=== PATIENT | female | born 1950 | race Caucasian/White ===

== ENCOUNTER 2019-01-14 10:40 | Emergency (ER) | payer OTHER ==
[2019-01-14] MEDS ORDERED: ASPIRIN 81 MG CHEWABLE TABLET ONE (12:55)
--- NOTE | 2019-01-14 13:30 | RAD REPORT ---
EXAM DESCRIPTION: RAD - Chest Single View - 01/14/2019 1:19 pm CLINICAL HISTORY: left side chest pain Chest pain. COMPARISON: Chest Single View dated 12/23/2016; Chest Single View dated 12/10/2016; Chest Single View dated 07/05/2016; CHEST SINGLE VIEW dated 05/02/2009 FINDINGS: Portable technique limits examination quality. The lungs are grossly clear. The heart is normal in size. No displaced fractures. IMPRESSION: No acute intrathoracic process suspected.
[2019-01-14 14:01] LABS: Absolute Lymphocytes (CBC) 2.3 K/uL (0.7-4.9); Basophils % 1.3 % (0-1.3); Hematocrit 38.4 % (36.0-45.0); Lymphocytes % 38.2 % (15.3-44.8); MPV 7.5 fL (7.6-11.3)
[2019-01-14 14:02] LABS: Protime INR 0.96
[2019-01-14 14:26] LABS: ALT/SGPT 28 U/L (12-78); AST/SGOT 34 U/L (15-37); Albumin 4.1 g/dL (3.4-5.0); Alkaline Phosphatase 73 U/L (45-117); BUN Blood Urea Nitrogen 7 mg/dL (7-18); Bicarbonate 32 mmol/L (21-32); Bilirubin Direct 0.2 mg/dL (0-0.2); Bilirubin Total 0.6 mg/dL (0.2-1.0); Glucose Level 92 mg/dL (74-106); Magnesium 2.2 mg/dL (1.8-2.4); NT PRO-BNP 28 pg/mL (<125); Potassium 3.3 mmol/L (3.5-5.1); Protein, Total 7.9 g/dL (6.4-8.2); Sodium Level 133 mmol/L (136-145); Troponin (Emerg Dept Use Only) < 0.02 ng/mL (0.0-0.045)
--- NOTE | 2019-01-14 14:31 | EKG ---
Test Date: 2019-01-14 Test Time: 13:00:32 Featherer: MONICA MEASUREMENT RESULTS: Intervals: Rate: 64 NE: 170 QRSD: 90 QT: 412 QTc: 425 [place]: P: 69 NE: 170 QRS: 30 T: 72 INTERPRETIVE STATEMENTS: Normal sinus rhythm Normal ECG Compared to ECG 12/23/2016 18:39:23 No significant changes Electronically Signed On 01-14-19 14:30:36 ACCOUNTS PAYABLE ASSOCIATE by Austin Denise
--- NOTE | 2019-01-14 14:56 | ER ---
Nurse's Notes [facility] Name: Marcy Reyez Age: 68 yrs Sex: Female : 1950 Arrival Date: 01/14/2019 Time: 10:43 Bed 14 Private MD: Diagnosis: Elevated Blood Pressure;Chest pain;hypokalemia;Right eye subconjunctival hemorrhage Presentation: 01/14 10:55 Presenting complaint: Patient states: checked BP this AM which was 187/88. Patient ss called her PCP to see if she should double up on her medications, which they told her no and to come to ER immediately because it was too high. Transition of care: patient was not received from another setting of care. Onset of symptoms was January 14, 2019. Risk Assessment: Do you want to hurt yourself or someone else? Patient reports no desire to harm self or others. Initial Sepsis Screen: Does the patient meet any 2 criteria? No. Patient's initial sepsis screen is negative. Does the patient have a suspected source of infection? No. Patient's initial sepsis screen is negative. Care prior to arrival: None. 10:55 Method Of Arrival: Ambulatory ss 10:55 Acuity: FRANCISCO JAVIER 4 ss Historical: - Allergies: 10:58 Morphine; ss - Home Meds: 10:58 HCTZ 25 mg half tab in AM and half tab in PM [Active]; ss - PMHx: 10:58 Anxiety; Arthritis; Hypertension; ss - Immunization history:: Adult Immunizations up to date. - Social history:: Smoking status: Patient/guardian denies using tobacco. - Ebola Screening: : Patient denies exposure to infectious person Patient denies travel to an Ebola-affected area in the 21 days before illness onset. - Family history:: not pertinent. - Hospitalizations: : No recent hospitalization is reported. Screenin:42 Abuse screen: Denies threats or abuse. Denies injuries from another. Nutritional ph screening: No deficits noted. Tuberculosis screening: No symptoms or risk factors identified. Fall Risk None identified. Assessment: 11:00 Reassessment: Patient reports that she has been having a bad year with multiple deaths ss in her family, but is seeing a counselor to help cope. 12:35 General: Appears in no apparent distress. comfortable, slender, well groomed, Behavior ph is calm, cooperative, appropriate for age. Pain: Complains of pain in left breast Pain does not radiate. Quality of pain is described as sharp, Is intermittent. Cardiovascular: Reports chest pain, Denies lightheadedness, nausea, shortness of breath, Capillary refill < 3 seconds in bilateral fingers Patient's skin is warm and dry. Rhythm is sinus rhythm. Respiratory: Airway is patent Respiratory effort is even, unlabored, Respiratory pattern is regular, symmetrical. Derm: Skin is intact, is healthy with good turgor, Skin is pink, warm \T\ dry. Musculoskeletal: Circulation, motion, and sensation intact. Range of motion: intact in all extremities. 13:30 Reassessment: Patient appears in no apparent distress at this time. Patient and/or ph family updated on plan of care and expected duration. Pain level reassessed. Patient is alert, oriented x 3, equal unlabored respirations, skin warm/dry/pink. 14:30 Reassessment: Patient appears in no apparent distress at this time. Patient and/or ph family updated on plan of care and expected duration. Pain level reassessed. Patient is alert, oriented x 3, equal unlabored respirations, skin warm/dry/pink. Vital Signs: 10:54 BP 154 / 74; Pulse 70; Resp 16; Temp 97.5(O); Pulse Ox 99% on R/A; Weight 66.68 kg; ss Height 5 ft. 4 in. (162.56 cm); Pain 0/10; 12:52 BP 161 / 67; Pulse 67; Resp 18; Pulse Ox 99% on R/A; ph 14:15 BP 133 / 82; Pulse 68; Resp 16; Pulse Ox 99% on R/A; ph 15:30 BP 147 / 76; Pulse 68; Resp 18; Temp 97.4; Pulse Ox 100% on R/A; ph 10:54 Body Mass Index 25.23 (66.68 kg, 162.56 cm) ED Course: 10:43 Patient arrived in ED. am2 10:54 Arm band placed on right wrist. ss 10:56 Triage completed. ss 12:15 Emre Hampton MD is Attending Physician. wa 12:41 Anita Person RN is Primary Nurse. ph 12:46 Patient has correct armband on for positive identification. Placed in gown. Bed in low ph position. Call light in reach. Side rails up X 1. library monitor on. Pulse ox on. NIBP on. Door closed. Noise minimized. Warm blanket given. Head of bed elevated. 13:06 EKG done, by manager technical support. reviewed by Emre Hampton MD. at1 13:26 XRAY Chest (1 view) In Process Unspecified. EDMS 14:00 Missed attempt(s): 22 gauge in right antecubital area. Bleeding controlled, band aid ph applied, catheter tip intact. 14:53 Khoa Villeda MD is Referral Physician. wa 15:43 No provider procedures requiring assistance completed. Patient did not have IV access ph during this emergency room visit. Administered Medications: 12:59 Drug: Aspirin Chewable Tablet 324 mg Route: PO; ph 15:40 Follow up: Response: No adverse reaction ph 15:39 Drug: Potassium Effervescent Tablet 50 mEq Route: PO; ph 15:40 Follow up: Response: No adverse reaction ph Outcome: 14:54 Discharge ordered by . wa 15:45 Discharged to home ambulatory. ph 15:45 Condition: good 15:45 Discharge instructions given to patient, Instructed on discharge instructions, follow up and referral plans. medication usage, Demonstrated understanding of instructions, follow-up care, medications, Prescriptions given X 3. 15:46 Patient left the ED. ph Signatures: Dispatcher [employer] EDME Nargis Corado RN RN ss Gonzales, Amanda, client architect EKG Tat1 Anita Person RN RN ph Moreno, Amanda am2 Emre Hampton MD MD wa
--- NOTE | 2019-01-14 14:57 | EDPHYS ---
Physician Documentation [facility] Name: Marcy Reyez Age: 68 yrs Sex: Female : 1950 Arrival Date: 01/14/2019 Time: 10:43 Bed 14 Private MD: ED Physician Emre Hampton HPI: 01/14 14:31 This 68 yrs old Female presents to ER via Ambulatory with complaints of High wa Blood Pressure. 14:31 The patient has elevated blood pressure and discovered this at home, with a home wa device. Onset: The symptoms/episode began/occurred this morning. Modifying factors: The symptoms are aggravated by nothing, The symptoms are alleviated by nothing. Associated signs and symptoms: The patient has no apparent associated signs or symptoms. Severity of symptoms: At its worst the blood pressure was 187 mm Hg, in the emergency department the blood pressure is 154/74. The patient has not experienced similar symptoms in the past. The patient has not recently seen a physician. states has h/o HTN. takes Lisonopril-HCTZ 20-12.5. lately cuts it into 2 as taking a full dose used to make her dizzy. noted redness in the R eye 2 days ago. her sister who is nurse asked her to check her BP. noted high today so called her doctor's office. instructed to come to ER as BP too high. denies CABA, dizziness, CP, SOB, swelling or any other concerns. Historical: - Allergies: 10:58 Morphine; ss - Home Meds: 10:58 HCTZ 25 mg half tab in AM and half tab in PM [Active]; ss - PMHx: 10:58 Anxiety; Arthritis; Hypertension; ss - Immunization history:: Adult Immunizations up to date. - Social history:: Smoking status: Patient/guardian denies using tobacco. - Ebola Screening: : Patient denies exposure to infectious person Patient denies travel to an Ebola-affected area in the 21 days before illness onset. - Family history:: not pertinent. - Hospitalizations: : No recent hospitalization is reported. ROS: 14:35 Constitutional: Negative for fever, chills, and weight loss, Eyes: Negative for injury, wa pain, redness, and discharge, ENT: Negative for injury, pain, and discharge, Neck: Negative for injury, pain, and swelling, Cardiovascular: Negative for chest pain, palpitations, and edema, Respiratory: Negative for shortness of breath, cough, wheezing, and pleuritic chest pain, Abdomen/GI: Negative for abdominal pain, nausea, vomiting, diarrhea, and constipation, Back: Negative for injury and pain, MS/Extremity: Negative for injury and deformity, Skin: Negative for injury, rash, and discoloration, Neuro: Negative for headache, weakness, numbness, tingling, and seizure, Psych: Negative for depression, anxiety, suicide ideation, homicidal ideation, and hallucinations. 14:35 All other systems are negative. Exam: 14:35 Constitutional: This is a well developed, well nourished patient who is awake, alert, wa and in no acute distress. Head/Face: Normocephalic, atraumatic. Eyes: Pupils equal round and reactive to light, extra-ocular motions intact. Lids and lashes normal. Conjunctiva and sclera are non-icteric and not injected. Cornea within normal limits. Periorbital areas with no swelling, redness, or edema. ENT: Nares patent. No nasal discharge, no septal abnormalities noted. Tympanic membranes are normal and external auditory canals are clear. Oropharynx with no redness, swelling, or masses, exudates, or evidence of obstruction, uvula midline. Mucous membranes moist. Neck: Trachea midline, no thyromegaly or masses palpated, and no cervical lymphadenopathy. Supple, full range of motion without nuchal rigidity, or vertebral point tenderness. No Meningismus. Chest/axilla: Normal chest wall appearance and motion. Nontender with no deformity. No lesions are appreciated. Cardiovascular: Regular rate and rhythm with a normal S1 and S2. No gallops, murmurs, or rubs. Normal PMI, no JVD. No pulse deficits. Respiratory: Lungs have equal breath sounds bilaterally, clear to auscultation and percussion. No rales, rhonchi or wheezes noted. No increased work of breathing, no retractions or nasal flaring. Abdomen/GI: Soft, non-tender, with normal bowel sounds. No distension or tympany. No guarding or rebound. No evidence of tenderness throughout. Back: No spinal tenderness. No costovertebral tenderness. Full range of motion. Skin: Warm, dry with normal turgor. Normal color with no rashes, no lesions, and no evidence of cellulitis. MS/ Extremity: Pulses equal, no cyanosis. Neurovascular intact. Full, normal range of motion. Neuro: Awake and alert, GCS 15, oriented to person, place, time, and situation. Cranial nerves II-XII grossly intact. Motor strength 5/5 in all extremities. Sensory grossly intact. Cerebellar exam normal. Normal gait. Psych: Awake, alert, with orientation to person, place and time. Behavior, mood, and affect are within normal limits. Vital Signs: 10:54 BP 154 / 74; Pulse 70; Resp 16; Temp 97.5(O); Pulse Ox 99% on R/A; Weight 66.68 kg; ss Height 5 ft. 4 in. (162.56 cm); Pain 0/10; 12:52 BP 161 / 67; Pulse 67; Resp 18; Pulse Ox 99% on R/A; ph 14:15 BP 133 / 82; Pulse 68; Resp 16; Pulse Ox 99% on R/A; ph 15:30 BP 147 / 76; Pulse 68; Resp 18; Temp 97.4; Pulse Ox 100% on R/A; ph 10:54 Body Mass Index 25.23 (66.68 kg, 162.56 cm) ss MDM: 12:15 Patient medically screened. wa 14:36 Differential diagnosis: HTN. pt should not be cutting her pill in half as pill not wa scored. otherwise asymptomatic however at end of MD encounter, pt clutched the bottom of L breast with her left had stating she "caught a charley horse" in that area. advised happens when she gets excited. no assoc SOB, dizziness or diaphoresis. states happened also at [employer] yesterday when she began laughing. will cardiac work up as this is intermittent chest pain until proven otherwise. Data reviewed: vital signs. 14:40 Test interpretation: by ED physician or midlevel provider: ECG, plain radiologic wa studies, EKG: interp by me. HR 64. sinus. nml axis. slight non-specific interventricular delay. no segmental ischemia noted. labs noted for a K of 3.3, otherwise wnl. nml CXR. . ED course: Aspirin given. will discuss dispo. 14:50 Response to treatment: the patient's symptoms have markedly improved after treatment. wa ED course: symptoms was clinically less likely for ACS. work up negative. states recently passed a stress test. will d/c with cardiology f/u. will script for potassium. advise immediately return for chest pain and or other worrisome concerns including chest pain, SOB with exertion, dizziness. 01/14 12:41 Order name: Basic Metabolic Panel; Complete Time: 14:29 nm 01/14 12:41 Order name: CBC with Diff; Complete Time: 14:29 01/14 12:41 Order name: LFT's; Complete Time: 14:29 01/14 12:41 Order name: Magnesium; Complete Time: 14:29 nm 01/14 12:41 Order name: NT PRO-BNP; Complete Time: 14:29 01/14 12:41 Order name: PT-INR; Complete Time: 14:29 nm 01/14 12:41 Order name: Troponin (emerg Dept Use Only); Complete Time: 14:30 nm 01/14 12:41 Order name: XRAY Chest (1 view); Complete Time: 14:30 nm 01/14 12:41 Order name: EKG; Complete Time: 12:42 nm 01/14 12:41 Order name: Cardiac monitoring; Complete Time: 12:48 nm 01/14 12:41 Order name: EKG - Nurse/Tech; Complete Time: 13:03 nm 01/14 12:41 Order name: Labs collected and sent; Complete Time: 14:48 nm 01/14 12:41 Order name: O2 Sat Monitoring; Complete Time: 12:48 nm Administered Medications: 12:59 Drug: Aspirin Chewable Tablet 324 mg Route: PO; ph 15:40 Follow up: Response: No adverse reaction ph 15:39 Drug: Potassium Effervescent Tablet 50 mEq Route: PO; ph 15:40 Follow up: Response: No adverse reaction ph Disposition: 01/14/19 14:54 Discharged to Home. Impression: Elevated Blood Pressure, Chest pain, hypokalemia, Right eye subconjunctival hemorrhage. - Condition is Stable. - Discharge Instructions: Nonspecific Chest Pain, Hypertension, Subconjunctival Hemorrhage, Hypokalemia. - Prescriptions for Potassium Chloride 20 meq Oral Packet - take 1 packet by ORAL route once daily 1 packet in 6 (six) ounces of water or juice; Take after meal; 30 packet. Lisinopril 10 mg Oral Tablet - take 1 tablet by ORAL route once daily; 30 tablet. Hydrochlorothiazide 12.5 mg Oral Tablet - take 1 tablet by ORAL route once daily; 30 tablet. - Medication Reconciliation Form, Thank You Letter, Antibiotic Education, Prescription Opioid Use form. - Follow up: Private Physician; When: 1 - 2 days. Follow up: Khoa Villeda MD; When: 2 - 3 days; Reason: Recheck today's complaints. - Problem is new. - Symptoms have improved. - Notes: follow up with your doctor and the heart doctor for further evaluation. return to ER if you develop chest pain. take medication as prescribed. hols aspirin for 2-3 days to help the bleeding in the eye improve Signatures: Dispatcher [employer] EDMS Nargis Corado RN RN Anita Person RN RN [facility] Hospital[facility] MD MD wa Corrections: (The following items were deleted from the chart) 14:59 14:54 01/14/2019 14:54 Discharged to Home. Impression: Elevated Blood Pressure; Chest wa pain; hypokalemia. Condition is Stable. Forms are Medication Reconciliation Form, Thank You Letter, Antibiotic Education, Prescription Opioid Use. Follow up: Private Physician; When: 1 - 2 days. Follow up: Khoa Villeda; When: 2 - 3 days; Reason: Recheck today's complaints. Problem is new. Symptoms have improved. wa 15:46 14:59 01/14/2019 14:54 Discharged to Home. Impression: Elevated Blood Pressure; Chest ph pain; hypokalemia; Right eye subconjunctival hemorrhage. Condition is Stable. Discharge Instructions: Nonspecific Chest Pain, Hypertension, Hypokalemia. Prescriptions for Potassium Chloride 20 meq Oral Packet - take 1 packet by ORAL route once daily 1 packet in 6 (six) ounces of water or juice; Take after meal; 30 packet, Hydrochlorothiazide 12.5 mg Oral Tablet - take 1 tablet by ORAL route once daily; 30 tablet, Lisinopril 10 mg Oral Tablet - take 1 tablet by ORAL route once daily; 30 tablet. and Forms are Medication Reconciliation Form, Thank You Letter, Antibiotic Education, Prescription Opioid Use. Follow up: Private Physician; When: 1 - 2 days. Follow up: Khoa Villeda; When: 2 - 3 days; Reason: Recheck today's complaints. Problem is new. Symptoms have improved. wa
[2019-01-14] MEDS ORDERED: POTASSIUM 25 MEQ EFFERV TAB ONE (15:26)
[2019-01-14] MEDS ORDERED: POTASSIUM CL SA 10 MEQ TAB PO ONE (15:26)
[2019-01-14 16:14] VITALS: BP 147/76; TEMP 97.4; O2SAT 100
== END 2019-01-14 15:46 | disposition home or self-care (01) ==
LOC: ER 10:40
DX: I10 Essential (primary) hypertension (principal); H11.31 Conjunctival hemorrhage, right eye; E87.6 Hypokalemia; F41.9 Anxiety disorder, unspecified; Z88.5 Allergy status to narcotic agent
CPT/HCPCS: 36415; 71045; 80048; 80076; 83735; 83880; 84484; 85025; 85610; 93005; 99284

== ENCOUNTER 2020-07-28 10:35 | Emergency (ER) | payer OTHER ==
--- NOTE | 2020-07-28 12:41 | EDPHYS ---
Physician Documentation [facility] Name: Marcy Reyez Age: 70 yrs Sex: Female : 1950 Arrival Date: 07/28/2020 Time: 10:38 Bed Treatment Private MD: ED Physician Jp Zarco HPI: 07/28 12:35 This 70 yrs old Female presents to ER via Ambulatory with complaints of Blood cp Pressure Problem. 12:35 The patient has elevated blood pressure and discovered this at home, with a home device.cp 12:35 Onset: The symptoms/episode began/occurred 2 day(s) ago. Severity of symptoms: At its cp worst the blood pressure was 200 mm Hg, in the emergency department the blood pressure is improved, 137 mm Hg. Patient reports she was told in the past she needed a new blood pressure cuff. Denies headache, chest pain and reports taking blood pressure medications as prescribed. Historical: - Allergies: 10:59 Morphine; jl7 - Home Meds: 10:59 olmesartan oral oral [Active]; rosuvastatin 10 mg oral tab 1 tab once daily [Active]; jl7 - PMHx: 10:59 Anxiety; Arthritis; Hypertension; jl7 - PSHx: 10:59 Appendectomy; Hysterectomy; Tubal ligation; jl7 - Immunization history:: Adult Immunizations up to date. - Social history:: Smoking status: Patient denies any tobacco usage or history of. ROS: 12:36 Eyes: Negative for injury, pain, redness, and discharge. cp 12:36 Constitutional: Negative for body aches, chills, fever, poor PO intake. 12:36 ENT: Negative for ear pain, sore throat, difficulty swallowing, difficulty handling secretions. 12:36 Cardiovascular: Negative for chest pain, edema, palpitations. 12:36 Respiratory: Negative for cough, shortness of breath, wheezing. 12:36 Abdomen/GI: Negative for abdominal pain, nausea, vomiting, and diarrhea. 12:36 Neuro: Negative for altered mental status, headache, syncope, weakness. 12:36 All other systems are negative. Exam: 12:37 Head/Face: Normocephalic, atraumatic. cp 12:37 Constitutional: The patient appears in no acute distress, alert, awake, comfortable, non-diaphoretic, non-toxic, well developed, well nourished. 12:37 Eyes: Periorbital structures: appear normal, Conjunctiva: normal, no exudate, no injection, Lids and lashes: appear normal, bilaterally. 12:37 ENT: External ear(s): are unremarkable, Nose: is normal, Mouth: is normal, Posterior pharynx: Airway: no evidence of obstruction, patent. 12:37 Chest/axilla: Inspection: normal. 12:37 Cardiovascular: Rate: normal, Rhythm: regular, Edema: is not appreciated, JVD: is not appreciated. 12:37 Respiratory: the patient does not display signs of respiratory distress, Respirations: normal, no use of accessory muscles, no retractions, labored breathing, is not present, Breath sounds: are clear throughout, no decreased breath sounds. 12:37 Abdomen/GI: Exam negative for discomfort, distension, guarding. 12:37 Neuro: Orientation: to person, place \T\ time. Mentation: is normal, Cerebellar function: is grossly normal, Motor: moves all fours, strength is normal, Sensation: is normal, Gait: is steady. Vital Signs: 10:54 BP 137 / 74; Pulse 77; Resp 17 S; Temp 98.4(O); Pulse Ox 100% on R/A; Weight 70.31 kg jl7 (R); Pain 0/10; 12:20 BP 133 / 63; Pulse 75; Resp 15; Pulse Ox 100% ; Pain 0/10; jl7 MDM: 12:33 Patient medically screened. cp 12:40 Differential diagnosis: hypertensive crisis, Malignant HTN, CVA, intracerebral cp hemorrhage. 12:40 Data reviewed: vital signs, nurses notes. cp Administered Medications: No medications were administered Disposition: 14:23 Co-signature as Attending Physician, Jp Zarco MD. rn Disposition: 07/28/20 12:41 Discharged to Home as Medical Screen. Impression: Encounter for examination of blood pressure. - Condition is Stable. - Discharge Instructions: How to Take Your Blood Pressure, [id number], Form - Blood Pressure Record Sheet. - Medication Reconciliation Form, Thank You Letter, Antibiotic Education, Prescription Opioid Use form. - Follow up: Private Physician; When: 2 - 3 days; Reason: Recheck today's complaints. - Problem is chronic. - Symptoms have improved. Signatures: Zarco, Jp, MD Donovan Christiansen rn, PA PA cp Leal, Jahala RN RN jl7 Corrections: (The following items were deleted from the chart) 12:47 12:41 07/28/2020 12:41 Discharged to Home as Medical Screen. Impression: Encounter for jl7 examination of blood pressure. Condition is Stable. Forms are Medication Reconciliation Form, Thank You Letter, Antibiotic Education, Prescription Opioid Use. Follow up: Private Physician; When: 2 - 3 days; Reason: Recheck today's complaints. Problem is chronic. Symptoms have improved. cp
--- NOTE | 2020-07-28 12:41 | ER ---
Nurse's Notes [facility] Name: Marcy Reyez Age: 70 yrs Sex: Female : 1950 Arrival Date: 07/28/2020 Time: 10:38 Bed Treatment Private MD: Diagnosis: Encounter for examination of blood pressure Presentation: 07/28 10:54 Chief complaint: Patient states: Took BP Monday and it read 200/80, this morning jl7 190/80, reports intermittent lightheaded after seeing the numbers, was told by PCP to get a new cuff a while ago but hasn't yet, denies CABA, denies blurred vision, denies weakness. Coronavirus screen: Client denies travel out of the [place] in the last 14 days. At this time, the client does not indicate any symptoms associated with coronavirus-19. Ebola Screen: No symptoms or risks identified at this time. Initial Sepsis Screen: Does the patient meet any 2 criteria? No. Patient's initial sepsis screen is negative. Does the patient have a suspected source of infection? No. Patient's initial sepsis screen is negative. Risk Assessment: Do you want to hurt yourself or someone else? Patient reports no desire to harm self or others. Onset of symptoms was July 26, 2020. Care prior to arrival: None. 10:54 Method Of Arrival: Ambulatory [facility] 10:54 Acuity: FRANCISCO JAVIER 3 jl7 Triage Assessment: 10:59 General: Appears in no apparent distress. uncomfortable, Behavior is calm, cooperative, jl7 appropriate for age. Pain: Denies pain. Neuro: Level of Consciousness is awake, alert, obeys commands, Oriented to person, place, time, situation, Moves all extremities. Gait is steady, Speech is normal. Cardiovascular: Patient's skin is warm and dry. Respiratory: Airway is patent Respiratory effort is even, unlabored, Respiratory pattern is regular, symmetrical. Derm: Skin is pink, warm \T\ dry. Historical: - Allergies: 10:59 Morphine; jl7 - Home Meds: 10:59 olmesartan oral oral [Active]; rosuvastatin 10 mg oral tab 1 tab once daily [Active]; jl7 - PMHx: 10:59 Anxiety; Arthritis; Hypertension; jl7 - PSHx: 10:59 Appendectomy; Hysterectomy; Tubal ligation; jl7 - Immunization history:: Adult Immunizations up to date. - Social history:: Smoking status: Patient denies any tobacco usage or history of. Vital Signs: 10:54 BP 137 / 74; Pulse 77; Resp 17 S; Temp 98.4(O); Pulse Ox 100% on R/A; Weight 70.31 kg jl7 (R); Pain 0/10; 12:20 BP 133 / 63; Pulse 75; Resp 15; Pulse Ox 100% ; Pain 0/10; jl7 ED Course: 10:38 Patient arrived in ED. am2 10:57 Triage completed. jl7 10:59 Arm band placed on right wrist. jl7 12:24 Donovan Bains PA is PHCP. cp 12:24 Jp Zarco MD is Attending Physician. cp 12:46 Lior Christensen, RN is Primary Nurse. jl7 Administered Medications: No medications were administered Outcome: 12:41 Discharge ordered by MD. cp 12:47 Patient left the ED. jl7 Signatures: Donovan Bains PA PA cp Lior Christensen, RN RN jl7 Liu, Luli am2
[2020-07-28 12:52] VITALS: TEMP 98.4; O2SAT 100
[2020-07-28 12:54] VITALS: BP 133/63
== END 2020-07-28 12:47 | disposition home or self-care (01) ==
LOC: ER 10:35
DX: I10 Essential (primary) hypertension (principal); F41.9 Anxiety disorder, unspecified; Z88.5 Allergy status to narcotic agent
CPT/HCPCS: 99281

== ENCOUNTER 2020-10-03 09:30 | Emergency (ER) | payer OTHER ==
[2020-10-03 11:29] LABS: Absolute Lymphocytes (CBC) 1.3 K/uL (0.7-4.9); Basophils % 0.7 % (0-1.3); Hematocrit 37.2 % (36.0-45.0); Lymphocytes % 19.3 % (15.3-44.8); RBC Red Blood Cell Count 4.29 M/uL (3.86-4.86)
[2020-10-03 11:42] LABS: ALT/SGPT 42 U/L (12-78); AST/SGOT 31 U/L (15-37); Albumin 3.9 g/dL (3.4-5.0); Alkaline Phosphatase 76 U/L (45-117); BUN Blood Urea Nitrogen 9 mg/dL (7-18); Bicarbonate 28 mmol/L (21-32); Bilirubin Direct 0.2 mg/dL (0-0.2); Bilirubin Total 0.7 mg/dL (0.2-1.0); Glucose Level 105 mg/dL (74-106); Magnesium 2.1 mg/dL (1.8-2.4); NT PRO-BNP 78 pg/mL (<125); Potassium 3.3 mmol/L (3.5-5.1); Protein, Total 7.4 g/dL (6.4-8.2); Sodium Level 131 mmol/L (136-145); Troponin (Emerg Dept Use Only) < 0.02 ng/mL (0.0-0.045)
[2020-10-03] MEDS ORDERED: NA CHLORIDE 0.9% 1,000 ML ONE (11:57)
--- NOTE | 2020-10-03 12:47 | RAD REPORT ---
EXAM DESCRIPTION: Taj Single View10/03/2020 12:03 pm CLINICAL HISTORY: Cough COMPARISON: 2019 FINDINGS: The lungs appear clear of acute infiltrate. The heart is normal size IMPRESSION: No acute abnormalities displayed
[2020-10-03 13:02] LABS: Urine Blood Negative (Negative); Urine Glucose Negative (Negative); Urine Protein Negative (Negative); Urine Specific Gravity 1.015 (1.005-1.030); Urine pH 7.5 (5.0-7.0)
--- NOTE | 2020-10-03 15:06 | ER ---
Nurse's Notes [facility] Name: Marcy Reyez Age: 70 yrs Sex: Female : 1950 Arrival Date: 10/03/2020 Time: 09:32 Bed DIS1 Private MD: Diagnosis: Coronavirus infection, unspecified Presentation: 10/03 10:39 Chief complaint: Patient states: two Monnesdays ago started feeling bad, has no energy, iw intermittent cough, was tested for COVID yesterday but does not have results, no fever no vomiting or diarrhea , does not have much appetite, still has sense of taste but has to force herself to eat. Coronavirus screen: Client presents with at least one sign or symptom that may indicate coronavirus-19. Ebola Screen: Patient negative for fever greater than or equal to 101.5 degrees Fahrenheit, and additional compatible Ebola Virus Disease symptoms Patient denies exposure to infectious person. Patient denies travel to an Ebola-affected area in the 21 days before illness onset. No symptoms or risks identified at this time. Initial Sepsis Screen: Does the patient meet any 2 criteria? No. Patient's initial sepsis screen is negative. Does the patient have a suspected source of infection? No. Patient's initial sepsis screen is negative. Risk Assessment: Do you want to hurt yourself or someone else? Patient reports no desire to harm self or others. Onset of symptoms was September 19, 2020. 10:39 Method Of Arrival: Wheelchair iw 10:39 Acuity: FRANCISCO JAVIER 3 iw 10:41 Note was started on zoloft on Monday for depression, moved out of her kids house iw recently. Historical: - Allergies: 10:41 Morphine; iw - Home Meds: 10:42 sertraline 25 mg oral tab 1 tab once daily [Active]; olmesartan-hydrochlorothiazide iw 20-12.5 mg oral tab 1 tab once daily [Active]; rosuvastatin 10 mg oral cpSP 1 cap once daily [Active]; - PMHx: 10:42 Anxiety; Arthritis; Hypertension; iw - PSHx: 10:42 hysterectomy; iw - Immunization history:: Client reports having NOT received the Covid vaccine. - Social history:: Smoking status: Patient denies any tobacco usage or history of. Screenin:38 Abuse screen: Denies threats or abuse. Nutritional screening: No deficits noted. ap3 Tuberculosis screening: No symptoms or risk factors identified. Fall Risk None identified. Assessment: 11:15 General: Appears in no apparent distress. comfortable, Behavior is calm, cooperative, ap3 appropriate for age, Reports feeling ill for a few weeks. Pain: Denies pain. Neuro: Level of Consciousness is awake, alert, obeys commands, Oriented to person, place, time, situation, Appropriate for age. Cardiovascular: Denies chest pain. Cardiovascular: Capillary refill < 3 seconds Patient's skin is warm and dry. Respiratory: Airway is patent Respiratory effort is even, unlabored, Respiratory pattern is regular, symmetrical. GI: No signs and/or symptoms were reported involving the gastrointestinal system. : No signs and/or symptoms were reported regarding the genitourinary system. Musculoskeletal: Reports weakness in generalized weakness. 12:24 Reassessment: patient provided with specimen cup, wipes and education on proper clean ap3 catch process. patient verbalized understanding. 13:15 Reassessment: patient is requesting a COVID test due to being around a large amount of ap3 family this evening. 14:27 Reassessment: patient has been seated in recliner. Patient states her family is not ap3 happy if she is not going to be sent home with medications. Vital Signs: 10:39 BP 123 / 68; Pulse 76; Resp 16; Temp 98.5; Pulse Ox 100% on R/A; Weight 68.04 kg; iw Height 5 ft. 4 in. (162.56 cm); 12:24 BP 162 / 77; Pulse 98; Resp 18; Pulse Ox 98% on R/A; ap3 13:16 BP 161 / 79; Pulse 70; Resp 16; Pulse Ox 100% ; ap3 10:39 Body Mass Index 25.75 (68.04 kg, 162.56 cm) iw ED Course: 09:32 Patient arrived in ED. ds1 10:41 Triage completed. iw 10:46 Marcus Ugarte PA is PHCP. m 10:46 Donovan Vásquez MD is Attending Physician. [facility] 11:03 Luli Gudino, RADHA is Primary Nurse. ap3 11:10 Inserted saline lock: 20 gauge in right wrist, using aseptic technique. Blood collected.ap3 11:38 Arm band placed on right wrist. ap3 11:38 Patient has correct armband on for positive identification. Bed in low position. Call ap3 light in reach. Side rails up X2. school bus monitor on. Pulse ox on. NIBP on. Door closed. Noise minimized. 12:03 XRAY Chest (1 view) In Process Unspecified. EDMS 15:25 No provider procedures requiring assistance completed. IV discontinued, intact, iw bleeding controlled, No redness/swelling at site. Pressure dressing applied. Administered Medications: 11:36 Drug: NS 0.9% 1000 ml Route: IV; Rate: 1 bolus; Site: right wrist; ap3 12:51 Follow up: Response: No adverse reaction; IV Status: Completed infusion; IV Intake: ap3 1000ml Intake: 12:51 IV: 1000ml; Total: 1000ml. ap3 Outcome: 15:06 Discharge ordered by . lilian 15:25 Discharged to home ambulatory. iw 15:25 Condition: good 15:25 Discharge instructions given to patient, Instructed on discharge instructions, follow up and referral plans. Demonstrated understanding of instructions, follow-up care. 15:26 Patient left the ED. iw Signatures: Dispatcher [employer] EDMS Marcus Ugarte PA PA jmm Sanford, Demi ds1 Debbie Mckoy, RN RN iw Luli Gudino RN RN ap3
--- NOTE | 2020-10-03 15:06 | EDPHYS ---
Physician Documentation [facility] Name: Marcy Reyez Age: 70 yrs Sex: Female : 1950 Arrival Date: 10/03/2020 Time: 09:32 Bed DIS1 Private MD: ED Physician Donovan Vásquez HPI: 10/03 15:04 This 70 yrs old Female presents to ER via Wheelchair with complaints of jmm Fatigue, Doesn't Feel Right. 15:04 Onset: The symptoms/episode began/occurred gradually. The patient has not experienced jmm similar symptoms in the past. This is a 70-year-old female with history of anxiety, hypertension the presents to the emergency department with complaints of generalized fatigue beginning approximately 2 weeks ago. Patient denies chest pain, denies shortness of breath, states that she has an occasional cough. Denies vomiting or diarrhea.. Historical: - Allergies: 10:41 Morphine; iw - Home Meds: 10:42 sertraline 25 mg oral tab 1 tab once daily [Active]; olmesartan-hydrochlorothiazide iw 20-12.5 mg oral tab 1 tab once daily [Active]; rosuvastatin 10 mg oral cpSP 1 cap once daily [Active]; - PMHx: 10:42 Anxiety; Arthritis; Hypertension; iw - PSHx: 10:42 hysterectomy; iw - Immunization history:: Client reports having NOT received the Covid vaccine. - Social history:: Smoking status: Patient denies any tobacco usage or history of. ROS: 15:04 Abdomen/GI: Negative for abdominal pain, nausea, vomiting, diarrhea, and constipation. jmm 15:04 Constitutional: Positive for fatigue. 15:04 Respiratory: Positive for cough. 15:04 Neuro: Positive for weakness. 15:04 All other systems are negative. Exam: 15:04 Constitutional: This is a well developed, well nourished patient who is awake, alert, jmm and in no acute distress. Head/Face: atraumatic. Eyes: EOMI, no conjunctival erythema appreciated ENT: Moist Mucus Membranes Neck: Trachea midline, Supple Chest/axilla: Normal chest wall appearance and motion. Cardiovascular: Regular rate and rhythm. No edema appreciated Respiratory: Normal respirations, no respiratory distress appreciated Abdomen/GI: Non distended, soft Back: Normal ROM Skin: General appearance color normal MS/ Extremity: Moves all extremities, no obvious deformities appreciated, no edema noted to the lower extremities Neuro: Awake and alert, normal gait Psych: Behavior is normal, Mood is normal, Patient is cooperative and pleasant Vital Signs: 10:39 BP 123 / 68; Pulse 76; Resp 16; Temp 98.5; Pulse Ox 100% on R/A; Weight 68.04 kg; iw Height 5 ft. 4 in. (162.56 cm); 12:24 BP 162 / 77; Pulse 98; Resp 18; Pulse Ox 98% on R/A; ap3 13:16 BP 161 / 79; Pulse 70; Resp 16; Pulse Ox 100% ; ap3 10:39 Body Mass Index 25.75 (68.04 kg, 162.56 cm) iw MDM: 10:50 Patient medically screened. jean 15:05 Data reviewed: vital signs, nurses notes. Counseling: I had a detailed discussion with lilian the patient and/or guardian regarding: the historical points, exam findings, and any diagnostic results supporting the discharge/admit diagnosis, lab results, radiology results, the need for outpatient follow up, to return to the emergency department if symptoms worsen or persist or if there are any questions or concerns that arise at home. ED course: Patient is alert nontoxic in appearance in the emergency department. No signs of respiratory distress. Patient is advised follow-up PCP and otherwise given strict return precautions. Patient understood and agrees plan of care. 10/03 10:58 Order name: Basic Metabolic Panel [facility] 10/03 10:58 Order name: CBC with Diff; Complete Time: 11:33 [facility] 10/03 10:58 Order name: LFT's; Complete Time: 11:47 [facility] 10/03 10:58 Order name: Magnesium; Complete Time: 11:47 [facility] 10/03 10:58 Order name: NT PRO-BNP; Complete Time: 11:47 [facility] 10/03 10:58 Order name: PT-INR; Complete Time: 11:33 [facility] 10/03 10:58 Order name: Troponin (emerg Dept Use Only); Complete Time: 11:47 [facility] 10/03 10:58 Order name: XRAY Chest (1 view); Complete Time: 12:52 [facility] 10/03 10:59 Order name: Urine Culture [facility] 10/03 10:59 Order name: Basic Metabolic Panel; Complete Time: 11:47 EDMS 10/03 13:01 Order name: Urine Dipstick-Ancillary; Complete Time: 13:02 [facility] 10/03 15:04 Order name: SARS-COV-2 RT PCR; Complete Time: 15:07 [facility] 10/03 10:58 Order name: EKG; Complete Time: 10:59 [facility] 10/03 10:58 Order name: Cardiac monitoring; Complete Time: 11:17 [facility] 10/03 10:58 Order name: EKG - Nurse/Tech; Complete Time: 11:45 [facility] 10/03 10:58 Order name: IV Saline Lock; Complete Time: 11:16 [facility] 10/03 10:58 Order name: Labs collected and sent; Complete Time: 11:17 [facility] 10/03 10:58 Order name: O2 Per Protocol; Complete Time: 11:17 [facility] 10/03 10:58 Order name: O2 Sat Monitoring; Complete Time: 11:17 [facility] 10/03 10:58 Order name: Urine Dipstick-Ancillary (obtain specimen); Complete Time: 13:02 [facility] Administered Medications: 11:36 Drug: NS 0.9% 1000 ml Route: IV; Rate: 1 bolus; Site: right wrist; ap3 12:51 Follow up: Response: No adverse reaction; IV Status: Completed infusion; IV Intake: ap3 1000ml Disposition: 10/04 06:58 Co-signature as Attending Physician, Donovan Vásquez MD I agree with the assessment and jean plan of care. Disposition Summary: 10/03/20 15:06 Discharge Ordered Location: Home [facility] Condition: Stable [facility] Diagnosis - Coronavirus infection, unspecified [facility] Followup: [facility] - With: Private Physician - When: 2 - 3 days - Reason: Recheck today's complaints, Continuance of care, Re-evaluation by your physician Discharge Instructions: - Discharge Summary Sheet [facility] - COVID-19 [facility] Forms: - Medication Reconciliation Form [facility] - Thank You Letter [facility] - Antibiotic Education [facility] - Prescription Opioid Use [facility] Signatures: Dispatcher [employer] Donovan Patel MD MD cha Mickail, Joel, PA PA [facility] Debbie Mckoy RN RN iw Prokisch, Amanda, RN RN ap3 Corrections: (The following items were deleted from the chart) 10/03 14:12 13:38 CORONAVIRUS+MR.LAB.BRZ ordered. EDMS EDMS
[2020-10-03 15:32] VITALS: TEMP 98.5
[2020-10-03 15:35] VITALS: BP 161/79; O2SAT 100
== END 2020-10-03 15:26 | disposition home or self-care (01) ==
LOC: ER 09:30
DX: U07.1 COVID-19 (principal); I10 Essential (primary) hypertension; F41.9 Anxiety disorder, unspecified; Z88.5 Allergy status to narcotic agent
CPT/HCPCS: 93005; 87088; 85025; 87086; 80048; 36415; 83735; 85610; 80076; 81003; 84484; 83880; 71045; 96360; 99284; U0003; J7030

== ENCOUNTER 2021-09-29 09:11 | Emergency (ER) | payer OTHER ==
[2021-09-29 10:08] LABS: Absolute Lymphocytes (CBC) 1.3 K/uL (0.7-4.9); Lymphocytes % 24.6 % (15.3-44.8); MCV 86.8 fL (80-100); MPV 6.8 fL (7.6-11.3); RBC Red Blood Cell Count 4.26 M/uL (3.86-4.86)
--- NOTE | 2021-09-29 10:14 | RAD REPORT ---
EXAM DESCRIPTION: RAD - Chest Single View - 09/29/2021 9:51 am CLINICAL HISTORY: CHEST PAIN Chest pain. COMPARISON: Chest Single View dated 09/26/2021; Chest Single View dated 10/03/2020; Chest Single View dated 01/14/2019; Chest Single View dated 12/23/2016 FINDINGS: Portable technique limits examination quality. The lungs are emphysematous but grossly clear. The heart is normal in size. No displaced fractures. IMPRESSION: COPD.
[2021-09-29 10:24] LABS: Potassium 3.8 mmol/L (3.5-5.1); Troponin High Sensitivity 5.1 pg/mL (<58.9)
--- NOTE | 2021-09-29 10:49 | ER ---
Nurse's Notes [facility] Name: Marcy Reyez Age: 71 yrs Sex: Female : 1950 Arrival Date: 09/29/2021 Time: 09:11 Bed 13 Private MD: Diagnosis: Essential (primary) hypertension Presentation: 09/29 09:23 Chief complaint: Patient states: htn that has not been well controlled with new meds. [facility] Coronavirus screen: Vaccine status: Patient reports being unvaccinated. Client denies travel out of the [place] in the last 14 days. Ebola Screen: Patient negative for fever greater than or equal to 101.5 degrees Fahrenheit, and additional compatible Ebola Virus Disease symptoms Patient denies exposure to infectious person. Patient denies travel to an Ebola-affected area in the 21 days before illness onset. Initial Sepsis Screen: Does the patient meet any 2 criteria? No. Patient's initial sepsis screen is negative. Does the patient have a suspected source of infection? No. Patient's initial sepsis screen is negative. Risk Assessment: Do you want to hurt yourself or someone else? Patient reports no desire to harm self or others. Onset of symptoms was September 29, 2021. 09:23 Method Of Arrival: Ambulatory [facility] 09:23 Acuity: FRANCISCO JAVIER 3 [facility] Triage Assessment: 09:27 General: Appears in no apparent distress. Behavior is anxious. Pain: Denies pain. [facility] Cardiovascular: Reports RINGING IN EARS. Historical: - Allergies: 09:27 Morphine; [facility] - PMHx: 09:27 Anxiety; Arthritis; depressive disorder; Hypertension; depressive disorder; [facility] - Immunization history:: Adult Immunizations up to date. - Social history:: Smoking status: Patient denies any tobacco usage or history of. Screenin:49 Abuse screen: Denies threats or abuse. Nutritional screening: No deficits noted. tp1 Tuberculosis screening: No symptoms or risk factors identified. Fall Risk No fall in past 12 months (0 pts). No secondary diagnosis (0 pts). IV access (20 points). Ambulatory Aid- None/Bed Rest/Nurse Assist (0 pts). Gait- Normal/Bed Rest/Wheelchair (0 pts) Mental Status- Oriented to own ability (0 pts). Total Berg Fall Scale indicates No Risk (0-24 pts). Assessment: 09:42 General: Appears in no apparent distress. comfortable, Behavior is calm, cooperative. tp1 Pain: Denies pain. Neuro: Level of Consciousness is awake, alert, obeys commands, Oriented to person, place, time, situation. Cardiovascular: Reports Denies chest pain, lightheadedness, nausea, vomiting, headache Patient's skin is warm and dry. Respiratory: Reports SOB when walking into hospital but denies SOB any other time Airway is patent Respiratory effort is even, unlabored. GI: No signs and/or symptoms were reported involving the gastrointestinal system. : No signs and/or symptoms were reported regarding the genitourinary system. EENT: No signs and/or symptoms were reported regarding the EENT system. Derm: Skin is healthy with good turgor, Skin is pink, warm \T\ dry. Musculoskeletal: Circulation, motion, and sensation intact. 10:52 Reassessment: Patient appears in no apparent distress at this time. No changes from tp1 previously documented assessment. Patient and/or family updated on plan of care and expected duration. Pain level reassessed. Patient is alert, oriented x 3, equal unlabored respirations, skin warm/dry/pink. Patient denies pain at this time. Vital Signs: 09:23 BP 200 / 94; Pulse 82; Resp 18; Temp 97.6(O); Pulse Ox 100% ; Weight 68.04 kg; Height 5 6 ft. 4 in. (162.56 cm); Pain 0/10; 10:13 BP 159 / 70; Pulse 69; Pulse Ox 100% on R/A; tp1 10:52 BP 158 / 74; Pulse 70; Resp 12; Pulse Ox 99% on R/A; Pain 0/10; tp1 09:23 Body Mass Index 25.75 (68.04 kg, 162.56 cm) [facility] ED Course: 09:11 Patient arrived in ED. mr 09:15 Israel Ortiz DO is Attending Physician. ms3 09:24 Katey Petty, RADAH is Primary Nurse. vg1 09:26 Triage completed. 6 09:29 Arm band placed on left wrist. Patient placed in the treatment room, on a stretcher, on 6 engine monitor, on pulse oximetry. 09:44 Initial lab(s) drawn, by me, sent to lab. Inserted saline lock: 22 gauge in left wrist, vg1 using aseptic technique. Blood collected. 09:49 Patient has correct armband on for positive identification. Bed in low position. Call tp1 light in reach. Side rails up X 1. Client placed on continuous cardiac and pulse oximetry monitoring. NIBP monitoring applied. 09:49 Patient maintains SpO2 saturation greater than 95% on room air. tp1 09:53 XRAY Chest (1 view) In Process Unspecified. EDMS 10:56 No provider procedures requiring assistance completed. IV discontinued, intact, tp1 bleeding controlled, No redness/swelling at site. Pressure dressing applied. Administered Medications: No medications were administered Medication: 10:57 VIS not applicable for this client. tp1 Outcome: 10:48 Discharge ordered by . ms3 10:56 Discharged to home ambulatory. tp1 10:56 Condition: good 10:56 Discharge instructions given to patient, Instructed on discharge instructions, follow up and referral plans. medication usage, Demonstrated understanding of instructions, follow-up care. 10:58 Patient left the ED. tp1 Signatures: Dispatcher [employer] EDNV Ml Hernandez Victoria, RN RN vg1 Israel Ortiz DO DO ms3 Zaira Espinoza, RN RN jh6 Lizet Jonas, RN RN tp1
--- NOTE | 2021-09-29 10:49 | EDPHYS ---
Physician Documentation [facility] Name: Marcy Reyez Age: 71 yrs Sex: Female : 1950 Arrival Date: 09/29/2021 Time: 09:11 Bed 13 Private MD: ED Physician Israel Ortiz HPI: 09/29 10:48 This 71 yrs old Female presents to ER via Ambulatory with complaints of High Blood ms3 Pressure. 10:48 71 yo female presents for elevated blood pressure that has been ongoing for 3 days. ms3 Patient states she was seen in the ED on Monday and was started on a new BP medication. Patient states her blood pressure is runnings 201/99.. Onset: The symptoms/episode began/occurred acutely, 3 day(s) ago. Severity of symptoms: At their worst the symptoms were very mild in the emergency department the symptoms are unchanged Pain is currently a 0 / 10. Historical: - Allergies: 09:27 Morphine; jh6 - PMHx: 09:27 Anxiety; Arthritis; depressive disorder; Hypertension; depressive disorder; jh6 - Immunization history:: Adult Immunizations up to date. - Social history:: Smoking status: Patient denies any tobacco usage or history of. ROS: 10:48 Constitutional: Negative for fever, and chills. ENT: Negative for injury, pain, and ms3 discharge, Neck: Negative for injury, pain, and swelling, Cardiovascular: Negative for chest pain, and palpitations. Respiratory: Negative for shortness of breath, cough, wheezing, and pleuritic chest pain, Abdomen/GI: Negative for abdominal pain, nausea, vomiting, diarrhea, and constipation, Back: Negative for injury and pain, Skin: Negative for injury, rash, and discoloration, Neuro: Negative for headache, weakness, numbness, tingling. Exam: 09:21 ECG was reviewed by the Attending Physician. ms3 10:48 Constitutional: This is a well developed, well nourished patient who is awake, alert, ms3 and in no acute distress. Head/Face: Normocephalic, atraumatic. ENT: Nares patent. No nasal discharge, no septal abnormalities noted. Tympanic membranes are normal and external auditory canals are clear. Oropharynx with no redness, swelling, or masses, exudates, or evidence of obstruction, uvula midline. Mucous membranes moist. Neck: Trachea midline, no cervical lymphadenopathy. Supple, full range of motion without nuchal rigidity, or vertebral point tenderness. No Meningismus. Chest/axilla: Normal chest wall appearance and motion. Nontender with no deformity. Cardiovascular: Regular rate and rhythm with a normal S1 and S2. No gallops, murmurs, or rubs. Normal PMI, no JVD. No pulse deficits. Respiratory: Lungs have equal breath sounds bilaterally, clear to auscultation and percussion. No rales, rhonchi or wheezes noted. No increased work of breathing, no retractions or nasal flaring. Abdomen/GI: Soft, non-tender, with normal bowel sounds. No distension or tympany. No guarding or rebound. No evidence of tenderness throughout. Skin: Warm, dry with normal turgor. Normal color with no rashes, no lesions, and no evidence of cellulitis. MS/ Extremity: Pulses equal, no cyanosis. Neurovascular intact. Full, normal range of motion. Neuro: Awake and alert, GCS 15, oriented to person, place, time, and situation. Cranial nerves II-XII grossly intact. Motor strength 5/5 in all extremities. Sensory grossly intact. Cerebellar exam normal. Normal gait. Psych: Awake, alert, with orientation to person, place and time. Behavior, mood, and affect are within normal limits. Vital Signs: 09:23 BP 200 / 94; Pulse 82; Resp 18; Temp 97.6(O); Pulse Ox 100% ; Weight 68.04 kg; Height 5 6 ft. 4 in. (162.56 cm); Pain 0/10; 10:13 BP 159 / 70; Pulse 69; Pulse Ox 100% on R/A; tp1 10:52 BP 158 / 74; Pulse 70; Resp 12; Pulse Ox 99% on R/A; Pain 0/10; tp1 09:23 Body Mass Index 25.75 (68.04 kg, 162.56 cm) [facility] MDM: 10:01 Patient medically screened. ms3 10:48 Differential diagnosis: abnormal EKG, acute myocardial infarction, htn. HEART Score: ms3 History: Slightly Suspicious (0), ECG: Normal (0), Age: > or = 65 years (2), Risk Factors: 1 or 2 risk factors (1), Troponin: < or = 1 x Normal Limit (0), Total Score = 2. Data reviewed: vital signs, nurses notes, lab test result(s), EKG, radiologic studies, and as a result, I will discharge patient. Counseling: I had a detailed discussion with the patient and/or guardian regarding: the historical points, exam findings, and any diagnostic results supporting the discharge/admit diagnosis, lab results, radiology results, the need for outpatient follow up, to return to the emergency department if symptoms worsen or persist or if there are any questions or concerns that arise at home. ED course: Patient is improved, in NAD, non-toxic appearing, ambulatory in ED, speaking full sentences.. 09/29 09:15 Order name: Basic Metabolic Panel; Complete Time: 10:36 ms3 09/29 09:15 Order name: CBC with Diff; Complete Time: 10:36 ms3 09/29 09:15 Order name: Troponin HS; Complete Time: 10:36 ms3 09/29 09:15 Order name: XRAY Chest (1 view); Complete Time: 10:36 ms3 09/29 09:15 Order name: Cardiac monitoring; Complete Time: 09:44 ms3 09/29 09:15 Order name: EKG - Nurse/Tech; Complete Time: :44 ms3 09/29 09:15 Order name: IV Saline Lock; Complete Time: :44 ms3 09/29 09:15 Order name: Labs collected and sent; Complete Time: :44 ms3 09/29 09:15 Order name: O2 Per Protocol; Complete Time: :44 ms3 09/29 09:15 Order name: O2 Sat Monitoring; Complete Time: :44 ms3 EC:21 Rate is 78 beats/min. Rhythm is regular. QRS [place] is Normal. VT interval is normal. ms3 Clinical impression: NSR w/ Non-specific ST/T Changes. Interpreted by me. Reviewed by me. Administered Medications: No medications were administered Disposition Summary: 09/29/21 10:48 Discharge Ordered Location: Home ms3 Condition: Stable ms3 Diagnosis - Essential (primary) hypertension ms3 Followup: ms3 - With: Private Physician - When: 2 - 3 days - Reason: Re-evaluation by your physician Discharge Instructions: - Discharge Summary Sheet ms3 - Hypertension, Adult ms3 Forms: - Medication Reconciliation Form ms3 - Thank You Letter ms3 - Antibiotic Education ms3 - Prescription Opioid Use ms3 Signatures: Dispatcher [employer] EDIsrael Locke, DO DO ms3 Zaira Espinoza, RN RN jh6
[2021-09-29 11:03] VITALS: TEMP 97.6
[2021-09-29 11:07] VITALS: BP 158/74; O2SAT 99
--- NOTE | 2021-09-30 08:50 | EKG ---
Test Date: 2021-09-29 Test Time: 09:21:05 Cube Machine Tender: TALI MEASUREMENT RESULTS: Intervals: Rate: 78 MO: 148 QRSD: 90 QT: 370 QTc: 421 Junction: P: 64 MO: 148 QRS: 1 T: 64 INTERPRETIVE STATEMENTS: Normal sinus rhythm Possible Left atrial enlargement Left ventricular hypertrophy Abnormal ECG Compared to ECG 09/26/2021 09:08:14 Left ventricular hypertrophy now present Electronically Signed On 09-30-21 08:47:09 CDT by Khoa Villeda
== END 2021-09-29 10:58 | disposition home or self-care (01) ==
LOC: ER 09:11
DX: I10 Essential (primary) hypertension (principal); Z88.5 Allergy status to narcotic agent
CPT/HCPCS: 36415; 71045; 80048; 84484; 85025; 93005

== ENCOUNTER 2021-10-03 17:04 | Emergency (ER) | payer OTHER ==
--- NOTE | 2021-10-03 18:06 | ER ---
Nurse's Notes [facility] Name: Marcy Reyez Age: 71 yrs Sex: Female : 1950 Arrival Date: 10/03/2021 Time: 17:05 Bed 9 Private MD: Diagnosis: Essential (primary) hypertension Presentation: 10/03 17:43 Chief complaint: Patient states: BP 218/101 at home, did not take lisinopril this jl7 morning, took her medication at 1645. Has followup appointment with PCP on Monday. Coronavirus screen: At this time, the client does not indicate any symptoms associated with coronavirus-19. Ebola Screen: No symptoms or risks identified at this time. Initial Sepsis Screen: Does the patient meet any 2 criteria? No. Patient's initial sepsis screen is negative. Does the patient have a suspected source of infection? No. Patient's initial sepsis screen is negative. Risk Assessment: Do you want to hurt yourself or someone else? Patient reports no desire to harm self or others. Onset of symptoms is unknown. Care prior to arrival: None. 17:43 Method Of Arrival: Wheelchair jl 17:43 Acuity: FRANCISCO JAVIER 4 jl7 Triage Assessment: 17:56 General: Appears in no apparent distress. uncomfortable, Behavior is cooperative, jl7 anxious. 17:56 Pain: Denies pain. jl7 Historical: - Allergies: 17:56 Morphine; jl7 - Home Meds: 17:56 Lisinopril Oral [Active]; jl7 - PMHx: 17:56 Anxiety; Arthritis; depressive disorder; Hypertension; depressive disorder; jl7 - PSHx: 17:56 hysterectomy; jl7 - Immunization history:: Adult Immunizations unknown. - Social history:: Smoking status: unknown. Vital Signs: 17:43 BP 177 / 84; Pulse 77; Resp 17; Temp 97.9(TE); Pulse Ox 97% on R/A; Weight 68.04 kg; jl7 Height 5 ft. 4 in. (162.56 cm); 17:43 Body Mass Index 25.75 (68.04 kg, 162.56 cm) jl7 ED Course: 17:05 Patient arrived in ED. mr 17:55 Marcus Ugarte PA is PHCP. lilian 17:55 Irina Trent is Attending Physician. lilian 17:56 Triage completed. jl7 17:59 Arm band placed on right wrist. jl7 Administered Medications: No medications were administered Outcome: 18:05 Discharge ordered by . lilian 19:06 Patient left the ED. jl7 Signatures: Marcus Ugarte PA PA jmm DavidMl mr ChristensenLior, RN RN jl7 Corrections: (The following items were deleted from the chart) 17:59 17:56 General: Appears in no apparent distress. uncomfortable, Behavior is calm, jl7 cooperative, appropriate for age, jl7
--- NOTE | 2021-10-03 18:06 | EDPHYS ---
Physician Documentation [facility] Name: Marcy Reyez Age: 71 yrs Sex: Female : 1950 Arrival Date: 10/03/2021 Time: 17:05 Bed 9 Private MD: ED Physician Irina Trent HPI: 10/03 18:03 This 71 yrs old Female presents to ER via Wheelchair with complaints of High Blood [facility] Pressure. 18:03 Is a 71-year-old female with history of anxiety, hypertension the presents emerged [facility] department with complaints of elevated blood pressure. Patient states she normally does not take her lisinopril due to not feeling well on it. Patient states she took her blood pressure earlier today which was over 200 systolic and decided to take her lisinopril. Blood pressure is now decreased. Patient denies chest pain, headache, vomiting, abdominal pain.. Historical: - Allergies: 17:56 Morphine; jl7 - Home Meds: 17:56 Lisinopril Oral [Active]; jl7 - PMHx: 17:56 Anxiety; Arthritis; depressive disorder; Hypertension; depressive disorder; jl7 - PSHx: 17:56 hysterectomy; jl7 - Immunization history:: Adult Immunizations unknown. - Social history:: Smoking status: unknown. ROS: 18:03 Constitutional: Negative for fever, chills, and weight loss, Cardiovascular: Negative jmm for chest pain, palpitations, and edema, Respiratory: Negative for shortness of breath, cough, wheezing, and pleuritic chest pain, Abdomen/GI: Negative for abdominal pain, nausea, vomiting, diarrhea, and constipation, Neuro: Negative for headache, weakness, numbness, tingling, and seizure. 18:03 All other systems are negative. Exam: 18:03 Constitutional: This is a well developed, well nourished patient who is awake, alert, jmm and in no acute distress. Head/Face: atraumatic. Eyes: EOMI, no conjunctival erythema appreciated ENT: Moist Mucus Membranes Neck: Trachea midline, Supple Chest/axilla: Normal chest wall appearance and motion. Cardiovascular: Regular rate and rhythm. No edema appreciated Respiratory: Normal respirations, no respiratory distress appreciated Abdomen/GI: Non distended Back: Normal ROM Skin: General appearance color normal MS/ Extremity: Moves all extremities, no obvious deformities appreciated, no edema noted to the lower extremities Neuro: Awake and alert Psych: Behavior is normal, Mood is normal, Patient is cooperative and pleasant Vital Signs: 17:43 BP 177 / 84; Pulse 77; Resp 17; Temp 97.9(TE); Pulse Ox 97% on R/A; Weight 68.04 kg; jl7 Height 5 ft. 4 in. (162.56 cm); 17:43 Body Mass Index 25.75 (68.04 kg, 162.56 cm) jl7 MDM: 18:03 Patient medically screened. [facility] 18:03 Data reviewed: vital signs, nurses notes. Counseling: I had a detailed discussion with [facility] the patient and/or guardian regarding: the historical points, exam findings, and any diagnostic results supporting the discharge/admit diagnosis, the need for outpatient follow up, to return to the emergency department if symptoms worsen or persist or if there are any questions or concerns that arise at home. Medical screen evaluation [facility]. [facility]. Administered Medications: No medications were administered Disposition: 18:03 Hypertension. [facility] Disposition Summary: 10/03/21 18:05 Discharge Ordered Location: Home [facility] Condition: Stable [facility] Diagnosis - Essential (primary) hypertension [facility] Followup: [facility] - With: Private Physician - When: As needed - Reason: Recheck today's complaints, Continuance of care, Re-evaluation by your physician Discharge Instructions: - Discharge Summary Sheet [facility] - Hypertension, Adult [facility] Forms: - Medication Reconciliation Form [facility] - Thank You Letter [facility] - Antibiotic Education [facility] - Prescription Opioid Use [facility] Signatures: Marcus Ugarte PA PA jmm Leal, Jahala, RN RN jl7
[2021-10-03 19:11] VITALS: BP 177/84; TEMP 97.9; O2SAT 97
== END 2021-10-03 19:06 | disposition home or self-care (01) ==
LOC: ER 17:04
DX: I10 Essential (primary) hypertension (principal); Z88.5 Allergy status to narcotic agent
CPT/HCPCS: 99281

== ENCOUNTER 2021-10-10 08:33 | Emergency (ER) | payer OTHER ==
[2021-10-10 09:16] LABS: Absolute Lymphocytes (CBC) 1.1 K/uL (0.7-4.9); Hematocrit 38.9 % (36.0-45.0); Lymphocytes % 18.5 % (15.3-44.8); MCV 87.1 fL (80-100); MPV 6.8 fL (7.6-11.3); RBC Red Blood Cell Count 4.47 M/uL (3.86-4.86)
[2021-10-10 09:37] LABS: Albumin 3.7 g/dL (3.4-5.0); Bilirubin Direct 0.2 mg/dL (0-0.2); Bilirubin Total 0.6 mg/dL (0.2-1.0); Magnesium 2.3 mg/dL (1.8-2.4); Potassium 3.5 mmol/L (3.5-5.1); Protein, Total 7.3 g/dL (6.4-8.2); Troponin High Sensitivity 7.8 pg/mL (<58.9)
--- NOTE | 2021-10-10 09:41 | RAD REPORT ---
EXAM DESCRIPTION: RAD - Chest Single View - 10/10/2021 9:20 am CLINICAL HISTORY: MALAISE COMPARISON: <Comparisons> FINDINGS: Lines: None. Lungs: No evidence of edema or pneumonia. Pleural: No significant pleural effusions or pneumothorax. Cardiac: The heart size is within normal limits. Bones: No acute fractures. Other: IMPRESSION: No acute cardiopulmonary disease.
[2021-10-10 09:46] LABS: Protime INR 1.05
--- NOTE | 2021-10-10 10:00 | EDPHYS ---
Physician Documentation [facility] Name: Marcy Reyez Age: 71 yrs Sex: Female : 1950 Arrival Date: 10/10/2021 Time: 08:35 Bed 8 Private MD: ED Physician Irina Trent HPI: 10/10 08:45 This 71 yrs old Female presents to ER via Wheelchair with complaints of High Blood jh7 Pressure. 08:45 The patient has elevated blood pressure and discovered this at home, with a home jh7 device. Onset: The symptoms/episode began/occurred last night. Associated signs and symptoms: Pertinent positives: lightheadedness. Patient presents to the ER complaining of hypertension and lightheadedness. States that the lisinopril just makes her feel bad. Reports that she has been seen here multiple times for the same issue. Reports that she saw her PCP on Monday who changed her lisinopril from 20 mg once a day, to 10 mg in the morning and 10 mg at night. Reports that her BP at home was 196/103. Denies any chest pain, shortness of breath, syncope, dizziness, abdominal pain, or visual changes. Reports that she cannot get back into her PCP for another 6 weeks and that she wants to make sure everything is okay.. Historical: - Allergies: 08:40 Morphine; ll1 - PMHx: 08:40 Anxiety; Arthritis; depressive disorder; depressive disorder; Hypertension; ll1 - PSHx: 08:40 hysterectomy; ll1 - Immunization history:: Client reports receiving the 2nd dose of the Covid vaccine. - Social history:: Smoking status: Patient denies any tobacco usage or history of. ROS: 08:45 Constitutional: Negative for fever, chills, and weight loss, Eyes: Negative for injury, jh7 pain, redness, and discharge, ENT: Negative for injury, pain, and discharge, Cardiovascular: Negative for chest pain, palpitations, and edema, Respiratory: Negative for shortness of breath, cough, wheezing, and pleuritic chest pain, Abdomen/GI: Negative for abdominal pain, nausea, vomiting, diarrhea, and constipation, Back: Negative for injury and pain, MS/Extremity: Negative for injury and deformity, Skin: Negative for injury, rash, and discoloration. 08:45 Neuro: Positive for Lightheadedness, Negative for altered mental status, dizziness, gait disturbance, headache, loss of consciousness, speech changes, syncope, tingling, visual changes. 08:45 All other systems are negative. Exam: 08:45 Constitutional: This is a well developed, well nourished patient who is awake, alert, jh7 and in no acute distress. Head/Face: Normocephalic, atraumatic. Eyes: Pupils equal round and reactive to light, extra-ocular motions intact. Lids and lashes normal. Conjunctiva and sclera are non-icteric and not injected. Cornea within normal limits. Periorbital areas with no swelling, redness, or edema. Neck: Trachea midline, no thyromegaly or masses palpated, and no cervical lymphadenopathy. Supple, full range of motion without nuchal rigidity, or vertebral point tenderness. No Meningismus. Cardiovascular: Regular rate and rhythm with a normal S1 and S2. No gallops, murmurs, or rubs. Normal PMI, no JVD. No pulse deficits. Respiratory: Lungs have equal breath sounds bilaterally, clear to auscultation and percussion. No rales, rhonchi or wheezes noted. No increased work of breathing, no retractions or nasal flaring. Abdomen/GI: Soft, non-tender, with normal bowel sounds. No distension or tympany. No guarding or rebound. No evidence of tenderness throughout. Back: No spinal tenderness. No costovertebral tenderness. Full range of motion. Skin: Warm, dry with normal turgor. Normal color with no rashes, no lesions, and no evidence of cellulitis. MS/ Extremity: Pulses equal, no cyanosis. Neurovascular intact. Full, normal range of motion. Neuro: Awake and alert, GCS 15, oriented to person, place, time, and situation. Cranial nerves II-XII grossly intact. Motor strength 5/5 in all extremities. Sensory grossly intact. Cerebellar exam normal. Normal gait. Vital Signs: 08:46 BP 173 / 93; Pulse 82; Resp 16; Temp 98.1; Pulse Ox 97% ; Weight 68.04 kg; Height 5 ft. ll1 4 in. (162.56 cm); Pain 5/10; 10:15 BP 168 / 74; Pulse 80; Resp 16; Pulse Ox 100% ; jh6 08:46 Body Mass Index 25.75 (68.04 kg, 162.56 cm) ll1 NIH Stroke Scale Scores: 08:45 NIHSS Score: 0 jh7 Yuriy Coma Score: 08:45 Eye Response: spontaneous(4). Verbal Response: oriented(5). Motor Response: obeys [facility] commands(6). Total: 15. MDM: 08:43 Patient medically screened. [facility] 10:09 Differential diagnosis: hypertensive crisis, Anxiety. Data reviewed: vital signs, [facility] nurses notes, lab test result(s), EKG, radiologic studies, plain films. Data interpreted: Pulse oximetry: is 97 %. Interpretation: normal. Counseling: I had a detailed discussion with the patient and/or guardian regarding: the historical points, exam findings, and any diagnostic results supporting the discharge/admit diagnosis, to return to the emergency department if symptoms worsen or persist or if there are any questions or concerns that arise at home. ED course: Discussed the patient's lab work, EKG, and x-ray. She stated that she was just feeling anxious and wanted someone to monitor her blood pressure. Informed her to continue her blood pressure meds as ordered, but to call her PCP first thing in the morning to see if she can get in to possibly change her medication. She asked if she could give an additional medication for anxiety/insomnia. Prescribed hydroxyzine. If she develops any new concerning symptoms, she may return to the ER for further eval.. 10/10 08:58 Order name: Basic Metabolic Panel; Complete Time: 09:41 10/10 08:58 Order name: CBC with Diff; Complete Time: 09:29 10/10 08:58 Order name: LFT's; Complete Time: 09:41 10/10 08:58 Order name: Magnesium; Complete Time: 09:41 10/10 08:58 Order name: NT PRO-BNP; Complete Time: 09:41 10/10 08:58 Order name: PT-INR; Complete Time: 09:54 10/10 08:58 Order name: Troponin HS; Complete Time: 09:41 10/10 08:58 Order name: XRAY Chest (1 view); Complete Time: 09:54 10/10 08:58 Order name: EKG; Complete Time: 09:01 10/10 08:58 Order name: Cardiac monitoring; Complete Time: 09:00 [facility] 10/10 08:58 Order name: EKG - Nurse/Tech; Complete Time: : [facility] 10/10 08:58 Order name: IV Saline Lock; Complete Time: 09: [facility] 10/10 08:58 Order name: Labs collected and sent; Complete Time: : [facility] 10/10 08:58 Order name: O2 Per Protocol; Complete Time: : [facility] 10/10 08:58 Order name: O2 Sat Monitoring; Complete Time: : [facility] EC:53 Rate is 81 beats/min. Rhythm is regular. QRS Raymond is Normal. RI interval is normal at [facility] 150 msec. QRS interval is normal at 84 msec. QT interval is normal at 366 msec. No Q waves. T waves are Inverted in lead aVL. No ST changes noted. Clinical impression: NSR w/ Non-specific ST/T Changes. Administered Medications: No medications were administered Disposition Summary: 10/10/21 10:00 Discharge Ordered Location: Home [facility] Problem: new [facility] Symptoms: are unchanged [facility] Condition: Stable [facility] Diagnosis - Essential (primary) hypertension [facility] - Other specified anxiety disorders [facility] Followup: [facility] - With: Private Physician - When: Tomorrow - Reason: Recheck today's complaints Discharge Instructions: - Discharge Summary Sheet [facility] - Hypertension, Adult [facility] - How to Take Your Blood Pressure [facility] - Managing Anxiety, Adult [facility] Forms: - Medication Reconciliation Form [facility] - Thank You Letter [facility] Prescriptions: - Hydroxyzine HCl 25 mg Oral Tablet - take 1 tablet by ORAL route every 6 hours As needed; 12 tablet; Refills: 0, [facility] Product Selection Permitted NIH Stroke Scale - NIH Stroke Score Date: 10/10/2021 Time: 08:45 Total Score = 0 1a. Level of Consciousness (LOC) - 0(Alert) 1b. Level of Consciousness (LOC) (Month \T\ Age) - 0(Both) 1c. LOC Commands (Open \T\ Closes Eyes/Liquor Blender) - 0(Both) 2. Best Gaze (Lateral Gaze Paresis) - 0(Normal) 3. Visual Field Loss - 0(No visual loss) 4. Facial Palsy - 0(Normal) 5a. Left Arm: Motor (10-second hold) - 0(No drift) 5b. Right Arm: Motor (10-second hold) - 0(No drift) 6a. Left Leg: Motor (5-second hold - always test supine) - 0(No drift) 6b. Right Leg: Motor (5-second hold - always test supine) - 0(No drift) 7. Limb Ataxia (finger/nose \T\ heel/jay - test with eyes open) - 0(Absent) 8. Sensory Loss (pinprick arms/legs/face) - 0(Normal) 9. Best Language: Aphasia (description/naming/reading) - 0(No aphasia) 10. Dysarthria (speech clarity - read or repeat words) - 0(Normal) 11. Extinction and Inattention (visual/tactile/auditory/spatial/personal) - 0(No abnormality) Initials: jh7 Signatures: Dispatcher [employer] Rocio Lara RN RN ll1 Zaira Alegre, DIRECTOR CRITICAL CARE DIRECTOR CRITICAL CARE jh
--- NOTE | 2021-10-10 10:00 | ER ---
Nurse's Notes [facility] Name: Marcy Reyez Age: 71 yrs Sex: Female : 1950 Arrival Date: 10/10/2021 Time: 08:35 Bed 8 Private MD: Diagnosis: Essential (primary) hypertension;Other specified anxiety disorders Presentation: 10/10 08:40 Acuity: FRANCISCO JAVIER 3 ll1 08:40 Method Of Arrival: Wheelchair ll1 08:46 Chief complaint: Patient states: 4 th visit in 2 weeks for HTN. BP 200/100's yesterday. ll1 New BP med isn't helping. Slight CABA. Coronavirus screen: Vaccine status: Patient reports being unvaccinated. Client denies travel out of the [place] in the last 14 days. At this time, the client does not indicate any symptoms associated with coronavirus-19. Ebola Screen: Patient denies travel to an Ebola-affected area in the 21 days before illness onset. Initial Sepsis Screen: Does the patient meet any 2 criteria? No. Patient's initial sepsis screen is negative. Does the patient have a suspected source of infection? No. Patient's initial sepsis screen is negative. Risk Assessment: Do you want to hurt yourself or someone else? Patient reports no desire to harm self or others. Onset of symptoms was September 24, 2021. Triage Assessment: 08:48 General: Appears uncomfortable, Behavior is calm, cooperative, appropriate for age. ll1 Pain: Complains of pain in head Pain currently is 5 out of 10 on a pain scale. Quality of pain is described as aching. Neuro: Reports headache High BP. Cardiovascular: Reports palpitations, high BP. Historical: - Allergies: 08:40 Morphine; ll1 - PMHx: 08:40 Anxiety; Arthritis; depressive disorder; depressive disorder; Hypertension; ll1 - PSHx: 08:40 hysterectomy; ll1 - Immunization history:: Client reports receiving the 2nd dose of the Covid vaccine. - Social history:: Smoking status: Patient denies any tobacco usage or history of. Screenin:06 Abuse screen: Denies threats or abuse. Denies injuries from another. Nutritional jh6 screening:. Tuberculosis screening: No symptoms or risk factors identified. Fall Risk None identified. Assessment: 09:07 General: Appears in no apparent distress. Behavior is calm, cooperative. jh6 10:22 Reassessment: Patient and/or family updated on plan of care and expected duration. Pain jh6 level reassessed. Patient is alert, oriented x 3, equal unlabored respirations, skin warm/dry/pink. Pain: Denies pain. Vital Signs: 08:46 BP 173 / 93; Pulse 82; Resp 16; Temp 98.1; Pulse Ox 97% ; Weight 68.04 kg; Height 5 ft. ll1 4 in. (162.56 cm); Pain 5/10; 10:15 BP 168 / 74; Pulse 80; Resp 16; Pulse Ox 100% ; jh6 08:46 Body Mass Index 25.75 (68.04 kg, 162.56 cm) ll1 [place] Coma Score: 08:45 Eye Response: spontaneous(4). Verbal Response: oriented(5). Motor Response: obeys jh commands(6). Total: 15. NIH Stroke Scale Scores: 08:45 NIHSS Score: 0 7 ED Course: 08:35 Patient arrived in ED. mr 08:39 Zaira Alegre FNP is [facility]. jh7 08:39 Irina Trent MD is Attending Physician. jh7 08:39 Arm band placed on Patient placed in an exam room, on a stretcher. ll1 08:40 Triage completed. ll1 08:41 Zaira Espinoza, RN is Primary Nurse. jh6 08:45 X-ray(s) taken. Inserted saline lock: 22 gauge in left wrist, using aseptic technique. jh6 08:57 Bed in low position. Call light in reach. Side rails up X 1. Door closed. Noise mb7 minimized. Warm blanket given. Client placed on continuous cardiac and pulse oximetry monitoring. NIBP monitoring applied. manager monitoring on. 08:58 EKG done, by ED staff, reviewed by Zaira COBURN. mb7 09:09 Basic Metabolic Panel Sent. mb7 09:09 CBC with Diff Sent. mb7 09:09 Troponin HS Sent. mb7 09:09 PT-INR Sent. mb7 09:09 NT PRO-BNP Sent. mb7 09:09 Magnesium Sent. mb7 09:09 LFT's Sent. mb7 09:21 XRAY Chest (1 view) In Process Unspecified. EDMS 10:15 No provider procedures requiring assistance completed. IV discontinued, intact, 6 bleeding controlled, No redness/swelling at site. Pressure dressing applied. Administered Medications: No medications were administered Outcome: 10:00 Discharge ordered by . 7 10:23 Discharged to home ambulatory. 6 10:23 Condition: stable 10:23 Discharge instructions given to patient, Instructed on discharge instructions, follow up and referral plans. Demonstrated understanding of instructions, follow-up care, medications, Prescriptions given X 1. 10:23 Patient left the ED. 6 NIH Stroke Scale - NIH Stroke Score Date: 10/10/2021 Time: 08:45 Total Score = 0 1a. Level of Consciousness (LOC) - 0(Alert) 1b. Level of Consciousness (LOC) (Month \T\ Age) - 0(Both) 1c. LOC Commands (Open \T\ Closes Eyes/Ductfixing Plumber) - 0(Both) 2. Best Gaze (Lateral Gaze Paresis) - 0(Normal) 3. Visual Field Loss - 0(No visual loss) 4. Facial Palsy - 0(Normal) 5a. Left Arm: Motor (10-second hold) - 0(No drift) 5b. Right Arm: Motor (10-second hold) - 0(No drift) 6a. Left Leg: Motor (5-second hold - always test supine) - 0(No drift) 6b. Right Leg: Motor (5-second hold - always test supine) - 0(No drift) 7. Limb Ataxia (finger/nose \T\ heel/jay - test with eyes open) - 0(Absent) 8. Sensory Loss (pinprick arms/legs/face) - 0(Normal) 9. Best Language: Aphasia (description/naming/reading) - 0(No aphasia) 10. Dysarthria (speech clarity - read or repeat words) - 0(Normal) 11. Extinction and Inattention (visual/tactile/auditory/spatial/personal) - 0(No abnormality) Initials: [facility] Signatures: Dispatcher [employer] Ml Howard Lynsay, RN RN ll1 Zaira Espinoza, RADHA RN jh6 Ml Kurtz 7 Zaira Alegre, TOWER LOADER OPERATOR TOWER LOADER OPERATOR [facility]
[2021-10-10 10:40] VITALS: TEMP 98.1
[2021-10-10 10:49] VITALS: BP 168/74; O2SAT 100
--- NOTE | 2021-10-11 12:22 | EKG ---
Test Date: 2021-10-10 Test Time: 08:53:05 Hospital Receptionist: MEASUREMENT RESULTS: Intervals: Rate: 81 MI: 150 QRSD: 84 QT: 366 QTc: 425 [place]: P: 71 MI: 150 QRS: 31 T: 85 INTERPRETIVE STATEMENTS: Normal sinus rhythm Nonspecific ST abnormality Abnormal ECG Compared to ECG 09/29/2021 09:21:05 ST (T wave) deviation now present Left ventricular hypertrophy no longer present Electronically Signed On 10-11-21 12:20:50 CDT by Gavino Kauffman
== END 2021-10-10 10:23 | disposition home or self-care (01) ==
LOC: ER 08:33
DX: I10 Essential (primary) hypertension (principal); F41.8 Other specified anxiety disorders; Z88.5 Allergy status to narcotic agent
CPT/HCPCS: 36415; 71045; 80048; 80076; 83735; 83880; 84484; 85025; 85610; 93005; 99284